=== PATIENT | male | born 1990 | race Caucasian/White ===

== ENCOUNTER 2017-10-12 13:18 | Emergency (ER) | payer SELFPAY ==
[~2017-10-12] VITALS: Ht 177.8 cm; Wt 113.0 kg
[2017-10-12 13:26] VITALS: BP 120/84
== END 2017-10-12 17:10 | disposition left against medical advice (07) ==
LOC: ER 16:02
DX: S81.031A Puncture wound without foreign body, right knee, initial encounter (principal); W22.8XXA Striking against or struck by other objects, initial encounter; Y93.39 Activity, other involving climbing, rappelling and jumping off; Y92.89 Other specified places as the place of occurrence of the external cause
CPT/HCPCS: 99281